=== PATIENT | female | born 1990 | race Caucasian/White ===

== ENCOUNTER 2017-04-30 14:33 | Emergency (ER) | payer OTHER ==
[2017-04-30 14:49] VITALS: BP 123/80
--- NOTE | 2017-04-30 16:49 | UC ---
Yudy Villanueva Rebecca, scribed for Christopher Mccormick MD on 04/30/17 at 1458 . Neck Pain HPI - HPI Summary HPI Summary: Pt is a 26 y/o F who presents to [facility] c/o neck pain. Pain began 5 days ago after riding a roller coaster and has been constant since onset. Pt reports she was at [facility] on a roller coaster and hear head "flew forward" and then backwards very quickly. Pain is worse on the R than L, with radiation down the R shoulder and into the R side of the back. Pain is currently severe, ranked 8/ 10. Sx aggravated by movement, alleviated by nothing, unchanged by ice, heart, Ibuprofen and Aleve. Denies LOC, fever, chills, weakness and numbness. Negative head trauma. States she is right handed. - History of Current Complaint Chief Complaint: UCBackPain Stated Complaint: NECK PAIN Time Seen by Provider: 04/30/17 14:46 Hx Obtained From: Patient Hx Last Menstrual Period: 04/21/17 Onset/Duration Of Injury/Symptoms: Days - 5 days Timing: Constant Onset/Duration: Lasting Days - 5 days, Still Present Severity: Severe Pain Intensity: 8 Pain Scale Used: 0-10 Numeric Location: Discrete At: - Neck (worse on the R), Radiates To: - R shoulder and down the R side of the back Aggravating Factors: Movement Alleviating Factors: Nothing Associated Signs & Symptoms: Positive: Negative. Negative: Weakness - Allergies/Home Medications Allergies/Adverse Reactions: Allergies Allergy/AdvReac Type Severity Reaction Status Date / Time No Known Allergies Allergy Verified 04/30/17 14:49 Home Medications: Home Medications Ibuprofen TAB* [Motrin TAB* 800 MG] 800 mg PO ONCE 04/30/17 [History Confirmed 04/30/17] PMH/Surg Hx/FS Hx/Imm Hx Previously Healthy: Yes Endocrine History: Other Other Endocrine History: Negative DM. Cardiovascular History: Other Other Cardiovascular History: Negative CAD - Surgical History Surgical History: None - Family History Known Family History: Negative: Cardiac Disease - Social History Alcohol Use: None Substance Use Type: None Smoking Status (MU): Heavy Every Day Tobacco Smoker Type: Cigarettes Amount Used/How Often: 1 PPD Length of Time of Smoking/Using Tobacco: 2 Years Have You Smoked in the Last Year: Yes Review Of Systems - ROS Summary Review of Systems Summary: POSITIVE: Neck pain with radiation into the R shoulder and R side of the back NEGATIVE: Fever, chills, LOC, weakness and numbness. Constitutional: Positive: Negative Skin: Positive: Negative Eyes: Positive: Negative ENT: Positive: Negative Respiratory: Positive: Negative Cardiovascular: Positive: Negative Gastrointestinal: Positive: Negative Genitourinary: Positive: Negative Musculoskeletal: Positive: Other: - See Summary Neurological: Positive: Negative Psychological: Positive: Negative All Other Systems Reviewed And Are Negative: Yes Physical Exam Triage Information Reviewed: Yes Vital Signs: Initial Vital Signs Temp 98.0 F 04/30/17 14:44 Pulse 102 04/30/17 14:44 Resp 16 04/30/17 14:44 BP 123/80 04/30/17 14:44 Pulse Ox 100 04/30/17 14:44 Vital Signs Reviewed: Yes - Additional Comments The patient is well-nourished in no acute distress and in no acute pain. The skin is warm and dry and skin color reflects adequate perfusion. HEENT: The head is normocephalic and atraumatic. The pupils are equal and reactive. The conjunctivae are clear and without drainage. Nares are patent and without drainage. The external ears are intact. The ear canals are patent and without drainage. The tympanic membranes are intact. Neck has decreased ROM through flexion, extension, side bending and rotation through the R and L sides. Respiratory: Chest is non-tender. Lungs are clear to auscultation and breath sounds are symmetrical and equal. Cardiovascular: Hear is regular rate and rhythm. There is no murmur or rub auscultated. There is no peripheral edema and pulses are symmetrical and equal. Musculoskeletal: There is good capillary refill. There is no peripheral edema or calf tenderness elicited. No spinous process tenderness. R trapezius muscle feels a lot of spasm tenderness and multiple muscle spasms. Decreased ROM through flexion, extension, side bending and rotation through the R and L. Neurological: Patient is alert and oriented to person, place and time. The patient has symmetrical motor strength in all four extremities. Cranial nerves are grossly intact. Deep tendon reflexes are symmetrical and equal in all four extremities. Psychiatric: The patient has an appropriate affect and does not exhibit any anxiety or depression. Neck Pain Course/Dx - Course Course Of Treatment: Pt is a 26 y/o F who presents to [facility] c/o constant bilateral neck pain, worse on the R than L, with radiation down the R shoulder and into the R side of the back for 5 days ago after riding a roller coaster. Pt reports she was at [facility] on a roller coaster and hear head "flew forward" and then backwards very quickly. Sx aggravated by movement, unchanged by ice, heart, Ibuprofen and Aleve. Denies LOC, fever, chills, weakness and numbness. Negative head trauma. Pt will be D/C to home with Dx of acute trapezius strain and Rx for [place] 5-325 and Flexeril. She understands and agrees. - Differential Dx/Diagnosis Differential Dx/HQI/PQRI: Sprain, Strain Provider Diagnoses: Acute trapezius strain Discharge - Discharge Plan Condition: Stable Disposition: HOME Prescriptions: Cyclobenzaprine TAB* [Flexeril 10 MG TAB*] 10 mg PO TID PRN #30 tab PRN Reason: pain HYDROcodone/ACETAMIN 5-325 MG* [[place] 5-325 TAB*] 1 tab PO Q6H PRN #20 tab MDD 4 PRN Reason: pain Patient Education Materials: Muscle Strain (ED) Referrals: Bertha Pham MD [Medical Doctor] - 3 Days Additional Instructions: Continue to take Aleve or Ibuprofen to treat the pain. Return to [facility] for any returning or worsening symptoms. The documentation as recorded by the Yudy nuñez Rebecca accurately reflects the service I personally performed and the decisions made by me, Christopher Mccormick MD.
== END 2017-04-30 15:14 | disposition home or self-care (01) ==
LOC: UCCORT 14:33
DX: S46.811A Strain of other muscles, fascia and tendons at shoulder and upper arm level, right arm, initial encounter (principal); X50.9XXA Other and unspecified overexertion or strenuous movements or postures, initial encounter; Y93.I1 Activity, roller coaster riding; F17.210 Nicotine dependence, cigarettes, uncomplicated
CPT/HCPCS: 99212; G0463

== ENCOUNTER 2017-10-12 11:15 | Emergency (ER) | payer OTHER ==
--- NOTE | 2017-10-12 13:16 | UC ---
Shoulder Pain HPI - HPI Summary HPI Summary: 27 year old female presents with complains of neck pain after falling. - History of Current Complaint Stated Complaint: NECK/SHOULDER PAIN Time Seen by Provider: 10/12/17 13:15 Hx Obtained From: Patient Hx Last Menstrual Period: 04/21/17 Onset/Duration: Sudden Onset Timing: Constant Severity Currently: Moderate Pain Scale Used: 0-10 Numeric - 7 Character: Sharp Aggravating Factor(s): Movement - Allergies/Home Medications Allergies/Adverse Reactions: Allergies Allergy/AdvReac Type Severity Reaction Status Date / Time Diphenhydramine Allergy Palpitation Verified 10/12/17 13:17 [From Benadryl] s Home Medications: Home Medications Levonorgestrel (Iud) [Mirena IUD] 0 mcg ONCE 10/12/17 [History Confirmed ] PMH/Surg Hx/FS Hx/Imm Hx Previously Healthy: Yes - Surgical History Surgical History: None - Family History Known Family History: Negative: Cardiac Disease - Social History Alcohol Use: None Substance Use Type: None Smoking Status (MU): Heavy Every Day Tobacco Smoker Type: Cigarettes Amount Used/How Often: 1 PPD Length of Time of Smoking/Using Tobacco: 2 Years Have You Smoked in the Last Year: Yes Review of Systems Constitutional: Negative Skin: Negative Eyes: Negative ENT: Negative Respiratory: Negative Cardiovascular: Negative Gastrointestinal: Negative Genitourinary: Negative Motor: Negative Neurovascular: Negative Musculoskeletal: Myalgia, Other: - neck pain/spasm Neurological: Negative Psychological: Negative All Other Systems Reviewed And Are Negative: Yes Physical Exam Triage Information Reviewed: Yes Vital Signs Reviewed: Yes Eye Exam: Normal ENT Exam: Normal Dental Exam: Normal Neck exam: Normal Neck: Positive: 1 Respiratory Exam: Normal Cardiovascular Exam: Normal Abdominal Exam: Normal Musculoskeletal: Positive: Other: - neck pain/spasm Neurological Exam: Normal Psychological Exam: Normal Skin Exam: Normal Shoulder Course/Dx - Differential Dx/Diagnosis Provider Diagnoses: neck spasm/pain Discharge - Discharge Plan Condition: Stable Disposition: HOME Prescriptions: Methocarbamol TAB* [Robaxin 500 MG TAB*] 500 mg PO TID PRN #30 tab PRN Reason: Spasms - Neck Methylprednisolone [Medrol Dosepak 4 MG*] 4 mg PO .SEE RUBEN INSTRUCTION #21 tab Patient Education Materials: Muscle Spasm (ED) Referrals: James Osman MD [Medical Doctor] - Kale Caraballo [Physical Therapist] - No Primary Care Phys,NOPCP [Primary Care Provider] -
[2017-10-12 13:22] VITALS: BP 155/96
== END 2017-10-12 13:44 | disposition home or self-care (01) ==
LOC: UCCORT 11:15
DX: R25.2 Cramp and spasm (principal); M54.2 Cervicalgia; Z88.8 Allergy status to other drugs, medicaments and biological substances; F17.210 Nicotine dependence, cigarettes, uncomplicated; W19.XXXA Unspecified fall, initial encounter; Y92.9 Unspecified place or not applicable
CPT/HCPCS: 99212; G0463